=== PATIENT | female | born 1945 | race Caucasian/White ===

== ENCOUNTER 2018-09-20 06:32 | Day surgery (SDC) | payer MEDICARE, OTHER ==
--- NOTE | 2018-09-19 11:21 | PCM.PREANE ---
<AlfredoGina parker Mando - Last Filed: 09/19/18 11:17> Preanesthetic Assessment - Anesthesia/Transfusion/Family Hx Anesthesia History: Prior Anesthesia Without Reaction Family History of Anesthesia Reaction: No Transfusion History: No Prior Transfusion(s) Intubation History: Unknown - Review of Systems Pulmonary: No Symptoms (Smoker: quit 1984) Cardiovascular: No Symptoms (History of HTN, CAD, stent placed in 1997), Dyspnea on Exertion (with climbing stairs/Pateint deconditioned.) Gastrointestinal: No Symptoms (GERD) Neurological: No Symptoms (History of paroxysmal vertigo), Headache Other: Reports: None (Chronic Kidney disease III), Sinus Problem (seasonal allergies noted), Depression - Physical Assessment NPO Status Date: 09/19/18 ASA Class: 3 Mental Status: Alert & Oriented x3 - Allergies Allergies/Adverse Reactions: Allergies Allergy/AdvReac Type Severity Reaction Status Date / Time cefotaxime sodium Allergy Cannot Verified 09/19/18 14:16 [From Salvador] Remember codeine Allergy Cannot Verified 09/19/18 14:16 Remember - Anesthesia Plan Pre-Op Medication Ordered: Beta Edouard Beta Edouard: Metoprolol Med Last Dose Date: 09/20/18 - Acknowledgements Anesthesia Type Planned: MAC Pt an Appropriate Candidate for the Planned Anesthesia: Yes Alternatives and Risks of Anesthesia Discussed w Pt/Guardian: Yes Pt/Guardian Understands and Agrees with Anesthesia Plan: Yes PreAnesthesia Questionnaire Other HEENT History: wears eyeglasses - HOME MEDS Home Medications: Home Meds Aspirin [Halfprin] 81 mg PO DAILY 03/13/15 [History] Estazolam 2 mg PO BEDTIME PRN 03/13/15 [History] Krill Oil/[place]-3/Dha/Epa [Fish Oil with Krill Softgel] 1 cap PO Q72H 03/13/15 [ History] Mirtazapine [Remeron] 30 mg PO BEDTIME 03/13/15 [History] Omeprazole [Prilosec] 20 mg PO DAILY 03/13/15 [History] Simvastatin [Zocor] 10 mg PO BEDTIME 03/13/15 [History] Triamterene/Hydrochlorothiazid [Triamterene-HCTZ 37.5-25 MG] 25 - 37.5 mg PO DAILY 03/13/15 [History] Ubidecarenone [Co Q-10] 100 mg PO BEDTIME 03/13/15 [History] amLODIPine [Norvasc] 10 mg PO DAILY 03/13/15 [History] Cetirizine HCl [Zyrtec] 10 mg PO DAILY 09/19/18 [History] Folic Acid 0.8 mg PO DAILY 09/19/18 [History] Losartan [Cozaar] 50 mg PO DAILY 09/19/18 [History] Sodium Bicarbonate 650 mg PO BID 09/19/18 [History] Vitamin A 10,000 units PO DAILY 09/19/18 [History] - CURRENT (IN HOUSE) MEDS Current Meds: Current Medications Lactated Ringer's (Ringers, Lactated) 1,000 mls @ 125 mls/hr IV ASDIRECTED MARIA Stop: 09/20/18 23:00 Lidocaine/Sodium Bicarbonate (Buffered Lidocaine 1% In Ns 8.4%) 0.25 ml IDERM ONETIME PRN PRN Reason: Prior to IV Start Stop: 09/20/18 18:00 Sodium Chloride (Saline Flush) 10 ml FLUSH ASDIRECTED PRN PRN Reason: Keep Vein Open Stop: 09/20/18 18:00 <Raffaele Martin - Last Filed: 09/20/18 07:07> Preanesthetic Assessment - Review of Systems General: No Symptoms - Physical Assessment NPO Status Time: 11:05 Pulse: 62 O2 Sat by Pulse Oximetry: 98 Respiratory Rate: 16 Blood Pressure: 142/84 Height: 67 cm Weight: 94.347 kg ASA Class: 3 Airway Class: Mallampati = 2 Dentition: Reports: Partial ROM/Head Extension: Limited/Partial Lungs: Clear to Auscultation, Normal Respiratory Effort Cardiovascular: Regular Rate, Regular Rhythm - Blood Blood Available: No - Anesthesia Plan Pre-Op Medication Ordered: Beta Edouard Med Last Dose Time: 05:30
[~2018-09-20 06:32] MED LIST: Lactated Ringers 1,000 ML IV SCH; Lidocaine 1%/Sod Bicarbonate in NS 8.4% 1 ML Syringe IDERM PRN; Sodium Chloride 0.9% 10 ML Syringe FLUSH PRN
--- NOTE | 2018-09-20 06:51 | PCM.HP ---
H&P History of Present Illness - General Date of Service: 09/20/18 Admit Problem/Dx: Positive FIT, reflux, EGD and colonoscopy Source of Information: Patient - History of Present Illness Initial Comments - Free Text/Narative: The patient is [id number] by Dr. Zavala for positive FIT The patient was last evaluated in the clinic on 08/19. She denies major changes to medical history since that visit. She did complete nearly all colonoscopy prep, reports there was "a little I couldn't drink," stools were yellow. She did also see her knifer up for CKD 3-4 since the last clinic visit. Her BP was under good control and she has not had a lot of progression of disease through the years per last office note. She also had a steroid injection to her knee two weeks ago. The patient denies any constipation/ diarrhea. Stools are on the looser side. NO: hematochezia/ melena. She does noteblood on tissue paperwhenhemorrhoid is irritated. Has1-3BMs daily. Bowel movements are described as regular and easy to pass. No unintentional weight loss. Once in a while has smaller caliber stool caliber. No abdominal pain. Denies history of ulcerative colitis or Crohn 's disease. Denies any family history of inflammatory bowel disease or GI cancers. Last colonoscopy was [address] Talbert, severe diverticulosis was noted. Hasreflux, heartburn,controlled with PPI, takes this every other day. She does have terrible reflux if she does not take this. She cannot wean. She has been taking this for 21 years since cardiacstent placement. NO: nausea, vomiting, or dysphagia. Last EGD was never. - Related Data Allergies/Adverse Reactions: Allergies Allergy/AdvReac Type Severity Reaction Status Date / Time cefotaxime sodium Allergy Cannot Verified 09/19/18 14:16 [From Claforan] Remember codeine Allergy Cannot Verified 09/19/18 14:16 Remember Home Medications: Home Meds Aspirin [Halfprin] 81 mg PO DAILY 03/13/15 [History] Estazolam 2 mg PO BEDTIME PRN 03/13/15 [History] Krill Oil/[place]-3/Dha/Epa [Fish Oil with Krill Softgel] 1 cap PO Q72H 03/13/15 [ History] Mirtazapine [Remeron] 30 mg PO BEDTIME 03/13/15 [History] Omeprazole [Prilosec] 20 mg PO DAILY 03/13/15 [History] Simvastatin [Zocor] 10 mg PO BEDTIME 03/13/15 [History] Triamterene/Hydrochlorothiazid [Triamterene-HCTZ 37.5-25 MG] 25 - 37.5 mg PO DAILY 03/13/15 [History] Ubidecarenone [Co Q-10] 100 mg PO BEDTIME 03/13/15 [History] amLODIPine [Norvasc] 10 mg PO DAILY 03/13/15 [History] Cetirizine HCl [Zyrtec] 10 mg PO DAILY 09/19/18 [History] Folic Acid 0.8 mg PO DAILY 09/19/18 [History] Losartan [Cozaar] 50 mg PO DAILY 09/19/18 [History] Sodium Bicarbonate 650 mg PO BID 09/19/18 [History] Vitamin A 10,000 units PO DAILY 09/19/18 [History] Metoprolol Succinate [Toprol XL] 12.5 mg PO DAILY 09/20/18 [History] Past Medical History HEENT History: Reports: Impaired Vision, Sinusitis Other HEENT History: wears eyeglasses, has upper and lower partials, tonsillitis Cardiovascular History: Reports: High Cholesterol, Hypertension, Stents, Other ( See Below) Other Cardiovascular History: ascvd Respiratory History: Reports: Asthma, Other (See Below) Other Respiratory History: URI Gastrointestinal History: Reports: Chronic Diarrhea, GERD, Hemorrhoids, Other ( See Below) Other Gastrointestinal History: diverticulosis Genitourinary History: Reports: Other (See Below) Other Genitourinary History: acute kidney injury, CKDIII, kidney/ureter disorder RELIEF PHARMACIST History: Reports: None Musculoskeletal History: Reports: Other (See Below) Other Musculoskeletal History: plantar fasciitis fibromatosis, muscle spasm, rib sprain, ankle sprain, left elbow olecranon bursitis, left knee calix cyst, leg fracture Neurological History: Reports: Headaches, Chronic, Vertigo Psychiatric History: Reports: Depression Endocrine/Metabolic History: Reports: None Hematologic History: Reports: None Immunologic History: Reports: None Oncologic (Cancer) History: Reports: None Dermatologic History: Reports: Other (See Below) Other Dermatologic History: actinic keratitis - Past Surgical History Head Surgeries/Procedures: Reports: None Cardiovascular Surgical History: Reports: None Respiratory Surgical History: Reports: None GI Surgical History: Reports: Cholecystectomy, Colonoscopy, Other (See Below) Other GI Surgeries/Procedures: hemorroid banding Female Surgical History: Reports: Tubal Ligation Male Surgical History: Reports: None Endocrine Surgical History: Reports: None Neurological Surgical History: Reports: None Musculoskeletal Surgical History: Reports: None Oncologic Surgical History: Reports: None Dermatological Surgical History: Reports: None Social & Family History - Tobacco Use Smoking Status *Q: Former Smoker Used Tobacco, but Quit: Yes Month/Year Tobacco Last Used: 1984 - Caffeine Use Caffeine Use: Reports: Coffee, Soda - Recreational Drug Use Recreational Drug Use: No Drug Use in Last 12 Months: No H&P Review of Systems - Review of Systems: Review Of Systems: See Below Free Text/Narrative: Denies any exertional chest pain. She does have some exertionalshortness of breathwith stair climbing. She does walk on her treadmill at times and outdoors. No history of any easy bleeding or bruising. No personal or familial history of clotting or bleeding disorders. No history of anesthetic complications. No history of familial anesthetic complications. Denies presence of chest pain, palpitations. She does have somelower extremity edema, resolves with sleep. NO: dyspnea at rest, orthopnea, claudication. Once in a while noteswheezing with walking. NO:obstructive sleep apnea, snoring, witnessed apnea. NO: chronic cough, upper respiratory symptoms in the last two weeks. She has allergies. No history of blood thinner use,exceptaspirin.No history of anemia. NO:joint replacement and heart valve replacement. No history of seizure or stroke. No fever, chills, or nightsweats. Hx of priorcardiology evaluation, due to stent, no longer follows with cardiology. NO: pulmonology evaluation. She follows with nephrology, For CKD, HTN, JAJA, metabolic acidosis. All other systems reviewed and were negative except as per history of present illness General: Reports: No Symptoms HEENT: Reports: Glasses Pulmonary: Reports: No Symptoms Cardiovascular: Reports: No Symptoms Gastrointestinal: Reports: No Symptoms Skin: Reports: No Symptoms Psychiatric: Reports: No Symptoms Neurological: Reports: No Symptoms Hematologic/Lymphatic: Reports: No Symptoms Review of Systems Comment:: Recent Labs: Results for TITO, KALANI M ( ) as of 09/20/2018 06:59 Ref. Range 08/27/2018 09:36 08/27/2018 09:41 WBC Latest Ref Range: 4.0 - 11.0 K/uL 6.4 RBC Latest Ref Range: 3.80 - 5.30 M/uL 4.69 Hemoglobin Latest Ref Range: 11.5 - 15.8 g/dL 13.8 Hematocrit Latest Ref Range: 35.0 - 45.0 % 41.2 MCV Latest Ref Range: 80.0 - 98.0 fL 87.8 MCH Latest Ref Range: 25.5 - 34.0 pg 29.4 MCHC Latest Ref Range: 31.5 - 36.5 g/dL 33.5 RDW-CV Latest Ref Range: 11.5 - 15.5 % 12.8 RDW-SD Latest Ref Range: 35.5 - 50.0 fl 40.2 Platelet Count Latest Ref Range: 140 - 400 K/uL 290 MPV Latest Ref Range: 8.5 - 12.0 fL 9.5 Seg Neut Absolute Latest Ref Range: 1.8 - 8.0 K/uL 4.1 Lymphocytes Absolute Latest Ref Range: 0.8 - 4.1 K/uL 1.5 Monocytes Absolute Latest Ref Range: 0.0 - 1.0 K/uL 0.4 Eosinophils Absolute Latest Ref Range: 0.0 - 0.7 K/uL 0.3 Basophil Absolute Latest Ref Range: 0.0 - 0.2 K/uL 0.0 Neutrophils Percent Latest Units: % 64.6 Lymphocytes Percent Latest Units: % 23.2 Monocytes Percent Latest Units: % 6.5 Eosinophils Percent Latest Units: % 5.1 Basophil Percent Latest Units: % 0.6 Glucose Latest Ref Range: 70 - 100 mg/dL 97 Sodium Latest Ref Range: 136 - 148 meq/L 142 Potassium Latest Ref Range: 3.5 - 5.1 meq/L 4.7 Chloride Latest Ref Range: 98 - 110 meq/L 102 CO2 Latest Ref Range: 25 - 35 meq/L 28 Anion Gap with K Latest Ref Range: 10 - 20 meq/L 17 BUN Latest Ref Range: 7 - 24 mg/dL 26 (H) Creatinine Latest Ref Range: 0.60 - 1.10 mg/dL 1.71 (H) BUN/Creatinine Ratio Unknown 15.2 Calcium Latest Ref Range: 8.4 - 10.2 mg/dL 9.7 Phosphorus Latest Ref Range: 2.3 - 4.7 mg/dL 2.9 Uric Acid Latest Ref Range: 2.6 - 6.0 mg/dL 9.8 (H) eGFR Latest Ref Range: >=60 mL/min/1.73m2 35 (L) eGFR Non- Latest Ref Range: >=60 mL/min/1.73m2 29 (L) Vitamin D 25 Hydroxy Latest Ref Range: 20 - 50 ng/mL 32 PTH Intact Latest Ref Range: 14 - 95 pg/mL 86 Color Urine Unknown Yellow Clarity Urine Unknown Clear Specific [place] Latest Ref Range: 1.005 - 1.030 1.015 Glucose Urine Latest Ref Range: Negative Negative Bilirubin Urine Latest Ref Range: Negative Negative Ketones Urine Latest Ref Range: Negative Negative Blood Urine Latest Ref Range: Negative Negative pH Urine Latest Ref Range: 5.0, 5.5, 6.0, 6.5, 7.0, 7.5, 8.0 6.0 Protein Urine Latest Ref Range: Negative, Trace Negative Nitrite Latest Ref Range: Negative Negative Leukocyte Esterase Urine Latest Ref Range: Negative Trace (A) Urobilinogen Latest Ref Range: 0.2 EU/dL, 1.0 EU/dL 0.2 EU/dL WBC Urine Latest Ref Range: Negative, 0-5 /hpf 0-5 /hpf RBC Urine Latest Ref Range: Negative, 0-2 /hpf Negative Squamous Epithelial Latest Ref Range: Negative, Rare (0-1), Occ (2-5), Few (6-15 ) /LPF Occ (2-5) Bacteria Latest Ref Range: Negative Few (A) Creatinine Urine Latest Ref Range: No Reference Range Established mg/dL 89.7 Protein Total Urine Latest Ref Range: <14.0 mg/dL 6.9 Protein/Creatinine Index Latest Ref Range: <=0.1 0.1 Exam - Exam Exam: See Below - Exam General: Alert, Oriented, Cooperative HEENT: Conjunctiva Clear Lungs: Clear to Auscultation, Normal Respiratory Effort Cardiovascular: Regular Rate, Regular Rhythm, Normal S1, Normal S2 GI/Abdominal Exam: Soft, No Distention Back Exam: Normal Inspection Extremities: Normal Inspection, No Pedal Edema Peripheral Pulses: 1+: Radial (L), Radial (R) Skin: Warm, Dry, Intact Neuro Extensive - Mental Status: Alert, Oriented x3, Normal Mood/Affect, Normal Cognition, Memory Intact Psychiatric: Alert, Normal Affect, Normal Mood - Problem List (1) Positive FIT (fecal immunochemical test) SNOMED Code(s): 77552760 ICD Code: R19.5 - OTHER FECAL ABNORMALITIES Status: Acute Current Visit: Yes (2) Acid reflux SNOMED Code(s): 994059874 ICD Code: K21.9 - GASTRO-ESOPHAGEAL REFLUX DISEASE WITHOUT ESOPHAGITIS Status: Acute Current Visit: Yes Qualifiers: Esophagitis presence: esophagitis presence not specified Qualified Code(s) : K21.9 - Gastro-esophageal reflux disease without esophagitis Problem List Initiated/Reviewed/Updated: Yes Orders Last 24hrs: Active Orders 24 hr Category Date Time Status EKG 12 Lead [EKG Documentation Completion] [] ROUTINE Care 09/20/18 07:00 Active Peripheral IV Care [RC] . DIRECTED Care 09/20/18 00:01 Active Verify Patient Consent Obtain [] ASDIRECTED Care 09/20/18 00:01 Active Lactated Ringers [Ringers, Lactated] 1,000 ml Med 09/20/18 00:01 Active IV ASDIRECTED Lidocaine 1%/Sod Bicarbonate [Buffered Lidocaine 1% in Med 09/20/18 00:01 Active NS 8.4%] 0.25 ml IDERM ONETIME PRN Sodium Chloride 0.9% [Saline Flush] Med 09/20/18 00:01 Active 10 ml FLUSH ASDIRECTED PRN Medication Administration Instruction [OM.PC] Routine Oth 09/20/18 00:01 Ordered Peripheral IV Insertion Adult [OM.PC] Routine Oth 09/20/18 00:01 Ordered Medication Orders Lactated Ringer's (Ringers, Lactated) 1,000 mls @ 125 mls/hr IV ASDIRECTED MARIA Stop: 09/20/18 23:00 Lidocaine/Sodium Bicarbonate (Buffered Lidocaine 1% In Ns 8.4%) 0.25 ml IDERM ONETIME PRN PRN Reason: Prior to IV Start Stop: 09/20/18 18:00 Sodium Chloride (Saline Flush) 10 ml FLUSH ASDIRECTED PRN PRN Reason: Keep Vein Open Stop: 09/20/18 18:00 Assessment/Plan Comment:: 73yr female withpositive FIT, reflux, inability to wean PPI, need for EGD/ colonoscopy Patient can perform 4 METS of physical activity without chest pain. She does have some exertionalshortness of breath with stair climbing and is currently deconditioned. PLAN: We discussed performing a EGD and colonoscopy. We discussed the procedure and post operative expectations. We discussed completion of the colonoscopy prep. I personally reviewed the patient's previous medical records and laboratory studies. Patient verbalized understanding and agreed with care plan. FELICITY Babcock-Dorian General Surgery Department [facility]
[2018-09-20] MEDS ORDERED: Propofol 200 MG/20 ML SDV ONE ×3 (07:15→08:11)
--- NOTE | 2018-09-20 08:31 | PCM.POSTAN ---
POST ANESTHESIA ASSESSMENT - MENTAL STATUS Mental Status: Alert - RESPIRATORY Respiratory Status: Respiratory Rate WNL, Airway Patent, O2 Saturation Stable, Supplemental Oxygen - CARDIOVASCULAR CV Status: Pulse Rate WNL, Blood Pressure Stable - GASTROINTESTINAL GI Status: No Symptoms - POST OP HYDRATION Hydration Status: Adequate & Stable
--- NOTE | 2018-09-20 08:31 | PCM48HPAN ---
Post Anesthesia Note - EVALUATION WITHIN 48HRS OF ANESTHETIC Vital Signs in Normal Range: Yes Patient Participated in Evaluation: Yes Respiratory Function Stable: Yes Airway Patent: Yes Cardiovascular Function Stable: Yes Hydration Status Stable: Yes Pain Control Satisfactory: Yes Nausea and Vomiting Control Satisfactory: Yes Mental Status Recovered: Yes Pulse Rate: 62 Resp Rate: 16 Blood Pressure: 142/84
--- NOTE | 2018-09-20 08:33 | PCM.OPNOTE ---
- General Post-Op/Procedure Note Date of Surgery/Procedure: 09/20/18 Operative Procedure(s): Esophagogastroduodenoscopy with cold forceps biopsy, Colonoscopy Findings: Esophagitis, Gastritis, Stomach Polyp, Hiatal hernia, Diverticulosis, Grade I internal hemorrhoids Pre Op Diagnosis: GERD, Positive Fecal Immunochemical Test, Hematochezia Post-Op Diagnosis: Esophagitis, Gastritis, Stomach Polyp, Hiatal Hernia, Diverticulosis, Grade I internal hemorrhoids Anesthesia Technique: MAC Primary Surgeon: Avery Ellis Anesthesia Provider: Raffaele Martin EBL in mLs: 5 Complications: None Condition: Good Free Text/Narrative:: After the patient gave verbal and written consent he was placed on blood pressure and pulse ox monitoring. He was given iv sedation which he tolerated well. The olympus gastroscope was inserted in the oropharynx and advanced to the second portion of the duodenum. The scope was slowly withdrawn. Mild to moderate gastritis was noted in the stomach antrum and body and cold forceps biopsies were taken with good hemostasis at the end of the procedure. The scope was then retroflexed and a small hiatal hernia was noted. The scope was then straightened out and brought back to the [place]. Mild esophagitis consistent with reflux was noted and biopsied with cold forceps biopsy. There was good hemostasis at the end of the procedure. The scope was then withdrawn. The patient was then prepped for colonoscopy. The olympus colonoscope was inserted per rectum and advanced to the cecum without difficulty. The ileocecal valve and appendiceal orfice were imaged documenting cecal inubation. The prep was adequate. The views were adequate. A little bit of residual liquid stool had to be aspirated to achieve mucosal views. Moderate diverticuosis was noted in the descending and sigmoid colon. The scope was then retroflexed in the rectum and grade I internal hemorrhoids were noted. THe scope was then removed. THe patient tolerated the procedure well. There were no complications. The patient left the endoscopy suite in good condition.
[2018-09-20 09:07] VITALS: BP 130/68
== END 2018-09-20 09:10 | disposition home or self-care (01) ==
LOC: JD.SDS 06:32
PROVIDERS: ATTEND Family Medicine
DX: K57.31 Diverticulosis of large intestine without perforation or abscess with bleeding (principal); K29.51 Unspecified chronic gastritis with bleeding; K64.0 First degree hemorrhoids; K21.0 Gastro-esophageal reflux disease with esophagitis; K44.9 Diaphragmatic hernia without obstruction or gangrene; K31.7 Polyp of stomach and duodenum; K22.8 Other specified diseases of esophagus; I25.10 Atherosclerotic heart disease of native coronary artery without angina pectoris; I12.9 Hypertensive chronic kidney disease with stage 1 through stage 4 chronic kidney disease, or unspecified chronic kidney disease; N18.4 Chronic kidney disease, stage 4 (severe); E87.2 Acidosis; F32.9 Major depressive disorder, single episode, unspecified; Z88.1 Allergy status to other antibiotic agents; Z88.5 Allergy status to narcotic agent; Z95.5 Presence of coronary angioplasty implant and graft; Z87.891 Personal history of nicotine dependence; Z79.82 Long term (current) use of aspirin; Z79.899 Other long term (current) drug therapy
CPT/HCPCS: 43239; 45378; 93005; J2704; J7120; 00813; 88305; 88342